=== PATIENT | female | born 1960 | race Two or more races ===

== ENCOUNTER 2020-01-10 17:18 | Emergency (ER) | payer MEDICAID, OTHER ==
[~2020-01-10] VITALS: Ht 160 cm; Wt 73.9 kg
[2020-01-10 17:18] VITALS: BP 154/85
== END 2020-01-10 18:07 | disposition home or self-care (01) ==
LOC: ER 17:18
DX: J39.2 Other diseases of pharynx (principal); F45.8 Other somatoform disorders; I10 Essential (primary) hypertension; E11.9 Type 2 diabetes mellitus without complications

== ENCOUNTER 2021-12-03 09:48 | Emergency (ER) | payer MEDICARE, OTHER ==
[~2021-12-03] VITALS: Ht 162.6 cm; Wt 76.3 kg
--- NOTE | 2021-12-03 09:58 | NUR ---
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 DENIES KO. NOTED LEFT ELBOW SWELLING AND PAIN 02/05. C/O NAUSEA. DENIES VOMITING. THE PATIENT IS ALERT AND ORIENTED X4. RESPIRATION REGULAR AND UNLABORED. DENIES SOB. ATTACHED TO THE MONITOR. WARM BLANKET PROVIDED FOR COMFORT. WILL CONTINUE TO MONITOR THE PATIENT.
--- NOTE | 2021-12-03 10:00 | NUR ---
DR RAMOS AT THE BEDSIDE
[2021-12-03] MEDS ORDERED: IV NS 0.9% 1,000 ML BAG IV ONE (10:30)
[2021-12-03 10:43] LABS: BASOPHILS % (AUTO) 0.3 % (0.0-2.0); EOSINOPHILS % (AUTO) 1.8 % (0.0-6.0); HEMATOCRIT 37 % (33-45); HEMOGLOBIN 12.6 g/dL (11.5-14.8); LYMPHOCYTES # (AUTO) 1.5 K/uL (0.8-4.8); LYMPHOCYTES % (AUTO) 19.7 % (20.0-44.0); MEAN CORPUSCULAR HGB CONC 34 g/dl (31.0-36.0); MEAN CORPUSCULAR VOLUME 87 fL (82-100); MONOCYTES # (AUTO) 0.5 K/uL (0.1-1.30); MONOCYTES % (AUTO) 5.9 % (2.0-12.0); NEUTROPHILS # (AUTO) 5.5 K/uL (1.8-8.9); NEUTROPHILS % (AUTO) 72.3 % (43.0-81.0); PLATELET COUNT (AUTO) 258 K/uL (150-450); RED BLOOD CELL COUNT(AUTO) 4.27 MIL/uL (4.0-5.2); WHITE BLOOD COUNT (AUTO) 7.6 K/uL (4.3-11.0)
[2021-12-03 10:51] LABS: CALCIUM, SERUM 8.9 mg/dL (8.5-10.1); CARBON DIOXIDE 26 mmol/L (21-32); CHLORIDE 102 mmol/L (98-107); CREATININE 0.8 mg/dL (0.6-1.3); GLUCOSE 269 mg/dL (74-106); POTASSIUM 3.8 mmol/L (3.5-5.1); SODIUM SERUM 136 mmol/L (136-145); UREA NITROGEN, BLOOD 20 mg/dL (7-18)
--- NOTE | 2021-12-03 10:52 | NUR ---
THE PATIENT IS TAKEN TO CT
[2021-12-03 10:59] LABS: ALANINE AMINOTRANSFERASE 28 U/L (12-78); ALBUMIN 3.4 g/dL (3.4-5.0); ALKALINE PHOSPHATASE 69 U/L (46-116); ASPARTATE AMINOTRANSFERASE 17 U/L (15-37); BILIRUBIN,TOTAL 0.2 mg/dL (0.2-1.0); TOTAL PROTEIN, SERUM 7.5 g/dL (6.4-8.2)
--- NOTE | 2021-12-03 11:03 | NUR ---
THE PATIENT IS BACK FROM CT
--- NOTE | 2021-12-03 11:15 | NUR ---
COVID SWAB DONE AND SENT TO THE LAB
[2021-12-03 12:57] VITALS: BP 141/76
--- NOTE | 2021-12-03 12:57 | NUR ---
The patient is alert and oriented x4. IV removed. Catheter intact and site benign. Pressure and 4x4 applied to site. No bleeding noted.Patient discharged to home in stable condition. Written and verbal after care instructions given. Patient verbalizes understanding of instruction.
== END 2021-12-03 12:58 | disposition home or self-care (01) ==
LOC: ER 10:02
DX: R55 Syncope and collapse (principal); E11.65 Type 2 diabetes mellitus with hyperglycemia; I10 Essential (primary) hypertension; J98.11 Atelectasis; Z20.822 Contact with and (suspected) exposure to COVID-19; I67.2 Cerebral atherosclerosis
CPT/HCPCS: 36415; 70450; 71045; 80048; 80076; 84484; 85025; 87426; 96360; 99285; J7030; C9803